=== PATIENT | female | born 1960 ===

== ENCOUNTER 2018-06-14 15:07 | Outpatient (CLI) | payer OTHER | END 2018-06-14 15:20 | disposition home or self-care (01) | LOC: OFIC 805 15:07 | DX: H90.3 Sensorineural hearing loss, bilateral (principal); L30.8 Other specified dermatitis; R42 Dizziness and giddiness ==

== ENCOUNTER 2018-07-11 14:39 | Outpatient (CLI) | payer OTHER ==
[~2018-07-11] VITALS: Ht 152.4 cm; Wt 81.6 kg
== END 2018-07-11 14:55 | disposition home or self-care (01) ==
LOC: OFIC 805 14:39
DX: R42 Dizziness and giddiness (principal); H60.593 Other noninfective acute otitis externa, bilateral; H90.3 Sensorineural hearing loss, bilateral; J30.89 Other allergic rhinitis

== ENCOUNTER → 2019-07-26 | Outpatient (CLI) | payer OTHER ==
[~2019-07-26] VITALS: Ht 152.4 cm; Wt 80.7 kg
[~2019-07-26] MED LIST: DERMOTIC20 ML OTIC
== END | disposition home or self-care (01) ==
LOC: OFIC 805 08:20
DX: J30.89 Other allergic rhinitis (principal); H91.13 Presbycusis, bilateral; L29.8 Other pruritus; H81.393 Other peripheral vertigo, bilateral